=== PATIENT | male | born 2000 | race Hispanic/Latino ===

== ENCOUNTER 2024-06-21 21:41 | Emergency (ER) | payer SELFPAY ==
[~2024-06-21] VITALS: Ht 182.9 cm; Wt 149.7 kg
[2024-06-21 21:50] VITALS: PULSE 106; RESP 18; TEMP 98.5
[2024-06-21] MEDS ORDERED: IBUPROFEN 400 MG TAB ONE (22:15)
[2024-06-21] MEDS: IBUPROFEN 400 MG TAB PO ONE (22:19)
[2024-06-21 23:36] VITALS: BP 111/74; PULSE 98; RESP 19; TEMP 98.8; O2SAT 99
== END 2024-06-21 23:38 | disposition home or self-care (01) ==
LOC: ER 21:44
DX: R07.89 Other chest pain (principal); M25.511 Pain in right shoulder; M25.531 Pain in right wrist; M24.821 Other specific joint derangements of right elbow, not elsewhere classified; V43.62XA Car passenger injured in collision with other type car in traffic accident, initial encounter; Y92.488 Other paved roadways as the place of occurrence of the external cause; F17.210 Nicotine dependence, cigarettes, uncomplicated
CPT/HCPCS: 71046; 93005; 99283